=== PATIENT | female | born 1970 | race Caucasian/White ===

== ENCOUNTER 2018-02-06 06:20 | Day surgery (SDC) | payer OTHER ==
[~2018-02-06 06:20] MED LIST: ZOLOFT100 MG PO
== END 2018-02-06 12:25 | disposition home or self-care (01) ==
LOC: CIR.AMB 06:20
DX: N85.01 Benign endometrial hyperplasia (principal)

== ENCOUNTER 2018-06-06 08:37 | Outpatient (CLI) | payer OTHER ==
[~2018-06-06] VITALS: Ht 167.6 cm; Wt 68.9 kg
== END 2018-06-06 18:29 | disposition home or self-care (01) ==
LOC: RAD 08:37
DX: N85.00 Endometrial hyperplasia, unspecified (principal); D64.89 Other specified anemias; N39.0 Urinary tract infection, site not specified; R79.89 Other specified abnormal findings of blood chemistry; Z01.818 Encounter for other preprocedural examination